=== PATIENT | female | born 1980 | race Caucasian/White ===

== ENCOUNTER 2023-07-01 12:39 | Emergency (ER) | payer SELFPAY ==
[~2023-07-01] VITALS: Ht 160 cm; Wt 86.2 kg
[2023-07-01 12:40] VITALS: O2SAT 100
[2023-07-01 12:46] VITALS: BP 114/88; PULSE 110; RESP 18; TEMP 98.6; O2SAT 99
[2023-07-01] MEDS ORDERED: ONDA8TAB87 PO (13:15)
[2023-07-01] MEDS ORDERED: IBUP-2213 PO (13:15)
[2023-07-01] MEDS ORDERED: CIPR500T4 PO (13:15)
[2023-07-01] MEDS: ONDANSETRON 4 MG/2 ML VIAL IVP ONE (13:20)
[2023-07-01] MEDS: KETOROLAC 30 MG/ML VIAL IVP ONE (13:21)
[2023-07-01] MEDS: NACL 0.9% 1,000 ML IV ONE (13:23)
[2023-07-01] MEDS: MORPHINE SULFATE 4 MG/ML SYR IVP ONE (13:54)
[2023-07-01 14:05] VITALS: BP 114/88; PULSE 110; RESP 18; TEMP 98.6; O2SAT 99
== END 2023-07-01 14:05 | disposition home or self-care (01) ==
LOC: MED 12:39
DX: R10.13 Epigastric pain (principal); R11.2 Nausea with vomiting, unspecified; R19.7 Diarrhea, unspecified; Z79.899 Other long term (current) drug therapy
CPT/HCPCS: 81002; 81025; 96361; 96374; 96375; 99284; J1885; J2270; J2405; J7030